=== PATIENT | male | born 1960 | race Caucasian/White ===

== ENCOUNTER 2016-12-06 09:18 | Emergency (ER) | payer OTHER ==
[~2016-12-06 09:18] MED LIST: ALPRAZOLAM PO; ASPIRIN81 M2 PO; CHOLESTEROL MED; CLARITIN10 M1 PO; FLOMAX0.4 M1 PO; KEFLEX; MORPHINE IL; PRILOSEC PO; ZANAFLEX2 M2 PO; ZESTRIL10 M1 PO; ZOCOR PO
[2017-03-30] MEDS ORDERED: ALPRAZOLAM PO (15:05)
[2017-03-30] MEDS ORDERED: MOBIC15 MG PO (15:05)
[2017-03-30] MEDS ORDERED: OMEPRAZOLE20 M2 PO (15:06)
[2017-03-30] MEDS ORDERED: LORTAB 10-3251 EACH PO (15:06)
[2017-03-30] MEDS ORDERED: ZANAFLEX PO (16:06)
== END 2016-12-06 09:48 | disposition home or self-care (01) ==
LOC: SED 09:18
DX: T78.40XA Allergy, unspecified, initial encounter (principal); F17.200 Nicotine dependence, unspecified, uncomplicated; X58.XXXA Exposure to other specified factors, initial encounter
CPT/HCPCS: 99282

== ENCOUNTER → 2017-02-14 | Outpatient (CLI) | payer OTHER ==
[~2017-02-14] MED LIST changes: +LORTAB 10-3251 EACH PO; +MOBIC15 MG PO; +OMEPRAZOLE20 M2 PO; +ZANAFLEX PO
--- NOTE | ~2017-02-14 | US5 ---
[facility] A Service of [facility] RADIOLOGY TEXT RESULTS PATIENT: HAVEN RODRIGUEZ LOCATION: SGUS : 56 UNIT #: [id number] AGE: [address]: Miguel Ángel Peoples MD SEX: M ORDER DR: [id number] [address] [address] [id number] O MR#: [id number] Acc #: [id number] NAME: HAVEN RODRIGUEZ : 1960 SEX: M STUDY DATE/TIME: 02/14/2017 9:51 UNIT: [facility] ROOM: STUDY DESCRIPTION: US Abdominal Complete Attending Physician: Miguel Ángel Peoples III, M.D. Referring Physician: Miguel Ángel Peoples III, M.D. Ordering Physician: Miguel Ángel Peoples III, M.D. Primary Care Physician: Mya Wilkerson M.D. MEDICAL IMAGING REPORT This report is preliminary unless electronic signature is present. EXAM Abdominal ultrasound complete, 02/14/2017 INDICATIONS A 56-year-old male with hepatitis C. Chronic hepatitis C. Right upper quadrant pain 3 months. TECHNIQUE Sonographic imaging of the abdomen was performed. COMPARISON 04/30/2012 FINDINGS Visualized aspects of the pancreas are unremarkable. Survey images of the liver demonstrate no focal mass intrahepatic ductal dilatation or ascites. The liver measures about 17.3 cm long axis. Kidneys are nonobstructed with the right measuring 10.3 cm and the left measuring 10.4 cm. No shadowing stone on either side. Segmentally visualized aorta and IVC unremarkable. Spleen measures 7.5 cm to the extent visualized. The gallbladder demonstrates probable adenomyomatosis of the nondependent wall but is otherwise unremarkable. No sonographic Pascual's sign was described. Common bile duct measures 3 mm. IMPRESSION Essentially negative abdominal ultrasound. Dictated by... Thiago Ramos M.D. [facility] A Service of [facility] RADIOLOGY TEXT RESULTS PATIENT: HAVEN RODRIGUEZ LOCATION: [facility] : 56 UNIT #: [id number] AGE: [address]: Miguel Ángel Peoples MD SEX: M ORDER DR: THIS IS AN ELECTRONICALLY VERIFIED REPORT Thiago Ramos M.D. at 02/14/2017 4:48 PM SEAN/chau TD: 02/14/2017 13:05 JOB #: [id number] MEDICAL IMAGING REPORT Page 1 of 1
== END | disposition home or self-care (01) ==
LOC: SGUS 09:41
DX: B18.2 Chronic viral hepatitis C (principal)
CPT/HCPCS: 76700